=== PATIENT | male | born 1935 | race Caucasian/White ===

== ENCOUNTER → 2016-10-15 | Outpatient (CLI) | payer OTHER ==
[~2016-10-15] MED LIST: ACETAMINOPHEN325 M1 PO; ARTIFICIAL TEAR15 M1 BOTH EYES; ARTIFICIAL TEAR15 M6 BOTH EYES; ASPIRIN81 M1 PO; ASPIRIN81 M2 PO; ATORVASTATIN CA80 MG PO; BISAC-EVAC10 MG PR; BUSPAR15 MG PO; BUSPIRONE HCL15 MG PO; CARVEDILOL12.5 MG PO; CARVEDILOL6.25 MG PO; COLACE100 MG PO; COREG3.125 M1 PO; COUGH CONT100 MG/5 M PO; Colace PO; Coreg PO; DUONEB 2.5-0.5 M3 ML AEROSOL; FLEET ENEMA-AD118 ML PR; FLOMAX0.4 MG PO; FUROSEMIDE40 MG PO; Flexeril PO; Flomax PO; GLUCAGON HCL1 MG IM; HUMALOG MI100 UNIT/6 SC; HUMALOG MI100 UNIT/6 SQ; HUMALOG100 UNIT/1 SC; ISOSORBIDE MONO60 MG PO; KEFLEX500 MG PO; KLOR-CON 1010 ME1 PO; LANTUS 3 M100 UNITS1 SC; LEXAPRO10 MG PO; LIDODERM 5% P1 PATCH TD; LIPITOR80 MG PO; LISINOPRIL2.5 MG PO; LO-DOSE ASPIRIN81 M1 PO; LORAZEPAM0.5 MG PO; Lipitor PO; MECLIZINE HCL12.5 M1 PO; MILK OF MAGN PO; MORPHINE CON20 MG/M1 PO; NOVOLOG PE100 UNITS/ SC; NOVOLOG100 UNIT/1 SC; NOVOLOG100 UNIT/1 SQ; OMEPRAZOLE40 M1 PO; OXAYDO5 MG PO; PAROXETINE HCL40 MG PO; PLAVIX75 MG PO; PRILOSEC20 MG PO; PROAIR HFA8.5 GM IH; Paxil PO; Percocet 5/325,Endoc PO; RAPAFLO4 MG; REFRESH OPTIVE10 ML BOTH EYES; SPIRONOLACTONE25 MG PO; Senokot,Sennagen PO; TAMSULOSIN HCL0.4 MG PO; TRAMADOL HCL50 MG PO; Tears Naturale II,Ar BOTH EYES; VENTOLIN HFA18 GM IH; ZOFRAN4 MG PO; Zestril,Prinivil PO
== END ==
LOC: RAD 10:11
DX: C85.90 Non-Hodgkin lymphoma, unspecified, unspecified site (principal); K80.20 Calculus of gallbladder without cholecystitis without obstruction; Z91.041 Radiographic dye allergy status
CPT/HCPCS: 71250; 74176

== ENCOUNTER 2016-12-05 13:31 | Inpatient (IN) | payer OTHER ==
[~2016-12-05] VITALS: Ht 177.8 cm; Wt 87.0 kg
[2016-12-05 14:16] LABS: BASOPHIL COUNT 0.1 K/uL (0-0.1); EOSINOPHIL (%) 7.2 % (0-5); EOSINOPHIL COUNT 0.6 K/uL (0-0.3); HEMATOCRIT 44.4 % (38.0-50.0); IMMATURE GRANULOCYTE (%) 0.3 % (0.0-0.7); INSTRUMENT ABS NEUTROPHIL CT 5.2 K/uL; LYMPHOCYTE COUNT 1.9 K/uL (1.0-2.8); MCH 31.8 PG (29.0-34.0); MCHC 33.8 G/DL (30.0-36.0); MCV 94.3 FL (86-99); MEAN PLAT.VOLUME 10.2 uM^3 (9.0-12.4); MONOCYTE (%) 11.6 % (3-12); NEUTROPHIL (%) 58.6 % (45-76); NEUTROPHIL COUNT 5.2 K/uL (1.8-6.4); PLATELET COUNT 198 K/uL (156-360); RBC DIS.WIDTH-CV 12.7 % (11.8-14.6); RBC DIS.WIDTH-SD 43.5 % (39-53); RED BLOOD COUNT 4.71 M/uL (4.00-5.50); WHITE BLOOD COUNT 8.8 K/uL (4.1-10.2)
[2016-12-05 14:24] LABS: CHLORIDE 98 mEq/L (99-109); SODIUM 133 mEq/L (136-147)
[2016-12-05 14:28] LABS: ANION GAP 10 MEQ/L (2-14); GLUCOSE 345 mg/dL (70-99); POTASSIUM 5.4 mEq/L (3.7-5.4); TOTAL BILIRUBIN 0.8 mg/dL (0.0-1.0)
[2016-12-05 14:30] LABS: ALKALINE PHOSPHATASE 79 IU/L (3-129); GFR ESTIMATE (CALCULATED) 44 mL/min/
[2016-12-05 14:31] LABS: UREA NITROGEN (BUN) 18 mg/dL (9-23)
[2016-12-05 14:37] LABS: TROP-I INTERPRETATION NEGATIVE
[2016-12-05] MEDS ORDERED: ARTIFICIAL TEAR15 M1 BOTH EYES ×2 (16:39→16:50)
[2016-12-05] MEDS ORDERED: LASIX40 MG PO (16:43)
[2016-12-05] MEDS ORDERED: ALDACTONE25 MG PO (16:44)
[2016-12-05] MEDS ORDERED: MAALOX ADVANCE355 ML PO (16:46)
[2016-12-05] MEDS ORDERED: MILK OF MAGN PO (16:51)
[2016-12-05] MEDS ORDERED: BAYER CHEWABLE81 MG PO (17:05)
[2016-12-05 19:22] VITALS: BP 178/80
[2016-12-05 19:54] LABS: POINT-OF-CARE METER ID UU13113831
[2016-12-05 21:30] LABS: POINT-OF-CARE METER ID UU13113831
[2016-12-05 22:02] LABS: METH RESISTANT S AUREUS PCR NEGATIVE (NEGATIVE)
[2016-12-05 22:17] LABS: PROBE CHECK PASS; SPECIMEN PROCESSING CONTROL PASS
[2016-12-05 23:51] VITALS: BP 133/65
[2016-12-06] VITALS (7 sets, daily range): BP systolic 94–168; BP diastolic 65–86
[2016-12-06 00:59] LABS: TROP-I INTERPRETATION NEGATIVE
[2016-12-06 06:25] LABS: TROP-I INTERPRETATION NEGATIVE; TROPONIN-I 0.11 ng/mL (0.0-0.30)
[2016-12-06 08:32] LABS: POINT-OF-CARE METER ID UU13113700
[2016-12-06 10:53] LABS: TROP-I INTERPRETATION NEGATIVE; TROPONIN-I 0.08 ng/mL (0.0-0.30)
[2016-12-06 12:24] LABS: POINT-OF-CARE METER ID UU13113831
[2016-12-06 15:34] LABS: PROTHROMBIN TIME 10.3 (9.2-11.2)
[2016-12-06 17:28] LABS: POINT-OF-CARE METER ID UU13113700
[2016-12-07] VITALS (7 sets, daily range): BP systolic 95–162; BP diastolic 44–83
[2016-12-07 08:28] LABS: POINT-OF-CARE METER ID UU13113700
[2016-12-07 12:31] LABS: TYPE OF FLUID PLEURAL
[2016-12-07 12:41] LABS: POINT-OF-CARE METER ID UU13113700
[2016-12-07 14:05] LABS: BODY FLUID LDH 81 IU/L; BODY FLUID PROTEIN < 3.0 G/DL
[2016-12-07 14:07] LABS: BODY FLUID RBC'S 1000 /MM^3 (0-100); BODY FLUID WBC'S 557 /MM^3 (0-500)
[2016-12-07 14:16] LABS: BODY FLUID EOSINOPHILS 0 % (0-25); MONONUCLEAR WBC'S 93 %; POLYNUCLEAR WBC'S 7 % (0-25)
[2016-12-07] MEDS ORDERED: IMDUR30 MG PO (14:47)
[2016-12-11 03:16] LABS: BODY FLUID PH 7.9 (())
== END 2016-12-07 15:24 | DRG 292 ==
LOC: EME 13:31 → 5WEST 17:45 → EDOF 17:45 → 5WEST 19:13
PROVIDERS: Emergency Medicine; Hospitalist; Nurse Practitioner Family; Radiology Diagnostic Radiology
PROC: 0W993ZZ Drainage of Right Pleural Cavity, Percutaneous Approach (ICD-10-PCS; principal; 2016-12-07)
DX: I13.0 Hypertensive heart and chronic kidney disease with heart failure and stage 1 through stage 4 chronic kidney disease, or unspecified chronic kidney disease (principal); I50.32 Chronic diastolic (congestive) heart failure; J90 Pleural effusion, not elsewhere classified; C85.90 Non-Hodgkin lymphoma, unspecified, unspecified site; E11.22 Type 2 diabetes mellitus with diabetic chronic kidney disease; I25.10 Atherosclerotic heart disease of native coronary artery without angina pectoris; E11.65 Type 2 diabetes mellitus with hyperglycemia; N18.3 Chronic kidney disease, stage 3 (moderate); E78.5 Hyperlipidemia, unspecified; I48.91 Unspecified atrial fibrillation; G89.29 Other chronic pain; F32.9 Major depressive disorder, single episode, unspecified; K21.9 Gastro-esophageal reflux disease without esophagitis; I25.2 Old myocardial infarction; Z95.5 Presence of coronary angioplasty implant and graft; Z79.4 Long term (current) use of insulin; Z79.82 Long term (current) use of aspirin; Z91.041 Radiographic dye allergy status; Z87.891 Personal history of nicotine dependence
CPT/HCPCS: 36415; 71020; 71250; 80048; 80053; 80061; 80076; 82945; 82948; 83615 91; 83986 90; 84157; 84484; 85025; 85610; 87070; 87116; 87205; 87206; 87641; 88108; 88305; 89051; 93005; 97530 GO; 99281; 99285; G0378; G8978 GP CJ; G8979 GP CI; G8987 CK; G8988 GO CJ; J1644; J1815; J2270; J3010

== ENCOUNTER 2016-12-19 08:23 | Inpatient (IN) | payer OTHER ==
[~2016-12-19] VITALS: Ht 177.8 cm; Wt 96.2 kg
[~2016-12-19 08:23] MED LIST changes: +ALDACTONE25 MG PO; +BAYER CHEWABLE81 MG PO; +IMDUR30 MG PO; +LASIX40 MG PO; +MAALOX ADVANCE355 ML PO
[2016-12-19 09:27] LABS: EOSINOPHIL (%) 0 % (0-5); HEMATOCRIT 42.5 % (38.0-50.0); IMMATURE GRANULOCYTE (%) 1.9 % (0.0-0.7); IMMATURE GRANULOCYTE COUNT 0.4 K/uL; INSTRUMENT ABS NEUTROPHIL CT 17.6 K/uL; MCH 32.3 PG (29.0-34.0); MCHC 34.8 G/DL (30.0-36.0); MCV 92.8 FL (86-99); MEAN PLAT.VOLUME 11.9 uM^3 (9.0-12.4); MONOCYTE (%) 8.1 % (3-12); MONOCYTE COUNT 1.7 K/uL (0-0.8); NEUTROPHIL (%) 85.1 % (45-76); NEUTROPHIL COUNT 17.6 K/uL (1.8-6.4); PLATELET COUNT 146 K/uL (156-360); RBC DIS.WIDTH-CV 12.9 % (11.8-14.6); RBC DIS.WIDTH-SD 42.8 % (39-53); RED BLOOD COUNT 4.58 M/uL (4.00-5.50); WHITE BLOOD COUNT 20.7 K/uL (4.1-10.2)
[2016-12-19 09:36] LABS: ADD MIUA? YES; BILIRUBIN NEGATIVE; BLOOD MODERATE; COLOR YELLOW ((YELLOW)); GLUCOSE (STRIP) >=500; KETONES 5; LEUKOCYTES NEGATIVE; NITRITE NEGATIVE; PROTEIN (STRIP) 30; SPECIFIC GRAVITY 1.016 (1.000-1.030); UROBILINOGEN 0.2 MG/DL (0.2-1.0)
[2016-12-19 09:37] LABS: INTER. NORMALIZED RATIO 1.5; PTT 28.9 (25-32)
[2016-12-19 09:38] LABS: PROTHROMBIN TIME 15.5 (9.2-11.2)
[2016-12-19 09:42] LABS: CHLORIDE 85 mEq/L (99-109); SODIUM 122 mEq/L (136-147)
[2016-12-19 09:44] LABS: POTASSIUM 6.5 mEq/L (3.7-5.4)
[2016-12-19 09:45] LABS: ANION GAP 19 MEQ/L (2-14)
[2016-12-19 09:46] LABS: GLUCOSE 559 mg/dL (70-99); TOTAL BILIRUBIN 2.3 mg/dL (0.0-1.0)
[2016-12-19 09:47] LABS: ALKALINE PHOSPHATASE 85 IU/L (3-129)
[2016-12-19 09:48] LABS: GFR ESTIMATE (CALCULATED) 13 mL/min/
[2016-12-19 09:49] LABS: UREA NITROGEN (BUN) 91 mg/dL (9-23)
[2016-12-19 09:53] LABS: TROP-I INTERPRETATION POSITIVE
[2016-12-19 09:58] LABS: AMORPHOUS URATES CRYSTALS 2+; BACTERIA 1+ /HPF; CASTS PRESENT /LPF; CRYSTALS PRESENT; EPITHELIAL CELLS RARE /HPF; HYALINE CASTS 0-5 /LPF; MUCUS NONE SEEN /LPF; RED BLOOD CELLS 0-5 /HPF (0-5); UCUL ADDED? NO; WHITE BLOOD CELLS 0-5 /HPF (0-5)
[2016-12-19 10:11] LABS: TROPONIN-I 57.53 ng/mL (0.0-0.30)
[2016-12-19] MEDS ORDERED: ISOSORBIDE MONO30 MG PO (11:59)
[2016-12-19] MEDS ORDERED: KIONEX15 GM/60 M PO (12:01)
[2016-12-19] MEDS ORDERED: NITROSTAT0.4 MG SL (12:04)
[2016-12-19 16:32] VITALS: BP 110/72
[2016-12-19 17:20] LABS: ANION GAP 14 MEQ/L (2-14); SAMPLE HEMOLYSIS CHECK 0; SAMPLE ICTERIC CHECK 0; SAMPLE LIPEMIA CHECK 0
[2016-12-19 17:21] LABS: CHLORIDE 90 MEQ/L (99-109); POTASSIUM 4.7 MEQ/L (3.7-5.4); SODIUM 129 MEQ/L (136-147)
[2016-12-19 17:37] LABS: GFR ESTIMATE (CALCULATED) 17 mL/min/; UREA NITROGEN (BUN) 88 mg/dL (9-23)
[2016-12-19 17:38] LABS: GLUCOSE 420 mg/dL (70-99)
[2016-12-19 17:52] LABS: TROP-I INTERPRETATION POSITIVE
[2016-12-19 17:52] LABS: POINT-OF-CARE METER ID UU14174216; POINT-OF-CARE USER ID NUTSLF44
[2016-12-19 19:15] VITALS: BP 112/75
[2016-12-19 23:41] VITALS: BP 97/56
[2016-12-20 00:20] LABS: POINT-OF-CARE METER ID UU13113781
[2016-12-20 02:41] LABS: TROP-I INTERPRETATION POSITIVE; TROPONIN-I 42.71 ng/mL (0.0-0.30)
[2016-12-20 03:47] VITALS: BP 104/67
[2016-12-20 04:13] LABS: POINT-OF-CARE METER ID UU13113781
[2016-12-20 07:30] VITALS: BP 117/74
[2016-12-20 09:30] LABS: EOSINOPHIL (%) 1.5 % (0-5); EOSINOPHIL COUNT 0.3 K/uL (0-0.3); IMMATURE GRANULOCYTE (%) 1.2 % (0.0-0.7); IMMATURE GRANULOCYTE COUNT 0.2 K/uL; INSTRUMENT ABS NEUTROPHIL CT 13.3 K/uL; LYMPHOCYTE COUNT 1.6 K/uL (1.0-2.8); MCH 32.2 PG (29.0-34.0); MCHC 33.7 G/DL (30.0-36.0); MCV 95.6 FL (86-99); MEAN PLAT.VOLUME 11.6 uM^3 (9.0-12.4); MONOCYTE (%) 11.1 % (3-12); MONOCYTE COUNT 1.9 K/uL (0-0.8); NEUTROPHIL COUNT 13.3 K/uL (1.8-6.4); NRBC (%) 1.9 /100 WBC (0-0); PLATELET COUNT 125 K/uL (156-360); RBC DIS.WIDTH-CV 13.5 % (11.8-14.6); RBC DIS.WIDTH-SD 46.1 % (39-53); RED BLOOD COUNT 4.29 M/uL (4.00-5.50); WHITE BLOOD COUNT 17.3 K/uL (4.1-10.2)
[2016-12-20 09:53] LABS: ANION GAP 10 MEQ/L (2-14); CHLORIDE 97 MEQ/L (99-109); GFR ESTIMATE (CALCULATED) 21 mL/min/; GLUCOSE 219 mg/dL (70-99); SAMPLE HEMOLYSIS CHECK 1; SAMPLE ICTERIC CHECK 0; SAMPLE LIPEMIA CHECK 0; SODIUM 130 MEQ/L (136-147); UREA NITROGEN (BUN) 79 mg/dL (9-23)
[2016-12-20 10:01] VITALS: BP 112/68
[2016-12-20 10:03] LABS: TROP-I INTERPRETATION POSITIVE; TROPONIN-I 39.31 ng/mL (0.0-0.30)
[2016-12-20 10:05] LABS: POTASSIUM 4.4 MEQ/L (3.7-5.4)
[2016-12-20 12:25] VITALS: BP 121/77
[2016-12-20 12:38] LABS: POINT-OF-CARE METER ID UU14100415
[2016-12-20 12:38] LABS: POINT-OF-CARE METER ID UU14100415
[2016-12-20 16:57] VITALS: BP 123/66
[2016-12-20 17:54] LABS: POINT-OF-CARE METER ID UU13113781
[2016-12-20 19:53] VITALS: BP 121/80
[2016-12-21 00:01] VITALS: BP 108/58
[2016-12-21 04:17] VITALS: BP 109/65
[2016-12-21 04:40] LABS: EOSINOPHIL (%) 0.3 % (0-5); EOSINOPHIL COUNT 0.1 K/uL (0-0.3); HEMATOCRIT 42.2 % (38.0-50.0); IMMATURE GRANULOCYTE COUNT 0.4 K/uL; INSTRUMENT ABS NEUTROPHIL CT 15.9 K/uL; LYMPHOCYTE COUNT 1.5 K/uL (1.0-2.8); MCH 32.5 PG (29.0-34.0); MCHC 33.2 G/DL (30.0-36.0); MCV 97.9 FL (86-99); MEAN PLAT.VOLUME 12.3 uM^3 (9.0-12.4); MONOCYTE (%) 11.5 % (3-12); MONOCYTE COUNT 2.3 K/uL (0-0.8); NEUTROPHIL (%) 78.7 % (45-76); NEUTROPHIL COUNT 15.9 K/uL (1.8-6.4); NRBC (%) 2.4 /100 WBC (0-0); PLATELET COUNT 122 K/uL (156-360); RBC DIS.WIDTH-CV 13.8 % (11.8-14.6); RBC DIS.WIDTH-SD 47.8 % (39-53); RED BLOOD COUNT 4.31 M/uL (4.00-5.50); WHITE BLOOD COUNT 20.2 K/uL (4.1-10.2)
[2016-12-21 06:17] LABS: POINT-OF-CARE METER ID UU13113781
[2016-12-21 07:35] LABS: ALKALINE PHOSPHATASE 84 IU/L (3-129); ANION GAP 13 MEQ/L (2-14); CHLORIDE 96 MEQ/L (99-109); GFR ESTIMATE (CALCULATED) 23 mL/min/; GLUCOSE 255 mg/dL (70-99); POTASSIUM 4.4 MEQ/L (3.7-5.4); SAMPLE HEMOLYSIS CHECK 0; SAMPLE ICTERIC CHECK 0; SAMPLE LIPEMIA CHECK 0; SODIUM 131 MEQ/L (136-147); TOTAL BILIRUBIN 1.8 MG/DL (0.0-1.0); UREA NITROGEN (BUN) 77 mg/dL (9-23)
[2016-12-21 08:15] VITALS: BP 116/67
[2016-12-21 12:06] LABS: POINT-OF-CARE METER ID UU14174216
[2016-12-21 12:14] VITALS: BP 99/81
[2016-12-21 16:00] VITALS: BP 123/58
[2016-12-21 17:56] LABS: POINT-OF-CARE METER ID UU14174216; POINT-OF-CARE USER ID ENVKC36
[2016-12-21 19:49] VITALS: BP 104/57
[2016-12-22 00:28] VITALS: BP 105/63
[2016-12-22 00:47] LABS: POINT-OF-CARE METER ID UU14174216; POINT-OF-CARE USER ID ENVMNS
[2016-12-22 04:15] VITALS: BP 107/63
[2016-12-22 06:18] LABS: POINT-OF-CARE METER ID UU14174216; POINT-OF-CARE USER ID ENVMNS
[2016-12-22 08:15] VITALS: BP 100/66
[2016-12-22 08:23] LABS: BASOPHIL COUNT 0.1 K/uL (0-0.1); EOSINOPHIL (%) 0.6 % (0-5); EOSINOPHIL COUNT 0.1 K/uL (0-0.3); HEMATOCRIT 41.9 % (38.0-50.0); IMMATURE GRANULOCYTE (%) 4.1 % (0.0-0.7); IMMATURE GRANULOCYTE COUNT 0.8 K/uL; LYMPHOCYTE COUNT 2.4 K/uL (1.0-2.8); MCH 32.3 PG (29.0-34.0); MCHC 32.7 G/DL (30.0-36.0); MCV 98.8 FL (86-99); MEAN PLAT.VOLUME 12.1 uM^3 (9.0-12.4); MONOCYTE (%) 15.5 % (3-12); NRBC (%) 4.1 /100 WBC (0-0); PLATELET COUNT 96 K/uL (156-360); RBC DIS.WIDTH-CV 14.6 % (11.8-14.6); RBC DIS.WIDTH-SD 49.5 % (39-53); RED BLOOD COUNT 4.24 M/uL (4.00-5.50); WHITE BLOOD COUNT 19.4 K/uL (4.1-10.2)
[2016-12-22 08:56] LABS: ALKALINE PHOSPHATASE 112 IU/L (3-129); ANION GAP 12 MEQ/L (2-14); CHLORIDE 95 MEQ/L (99-109); GFR ESTIMATE (CALCULATED) 19 mL/min/; GLUCOSE 238 mg/dL (70-99); POTASSIUM 4.6 MEQ/L (3.7-5.4); SAMPLE HEMOLYSIS CHECK 0; SAMPLE ICTERIC CHECK 0; SAMPLE LIPEMIA CHECK 0; SODIUM 128 MEQ/L (136-147); TOTAL BILIRUBIN 1.8 MG/DL (0.0-1.0); UREA NITROGEN (BUN) 90 mg/dL (9-23)
[2016-12-22 12:30] VITALS: BP 106/63
[2016-12-22 16:31] VITALS: BP 110/63
[2016-12-22 19:15] VITALS: BP 105/68
[2016-12-22 23:28] LABS: POINT-OF-CARE METER ID UU14174216
[2016-12-23 00:54] VITALS: BP 111/63
[2016-12-23 04:07] VITALS: BP 109/71
[2016-12-23 05:04] LABS: POINT-OF-CARE METER ID UU13113781
[2016-12-23 06:27] LABS: ANION GAP 12 MEQ/L (2-14); CHLORIDE 93 MEQ/L (99-109); POTASSIUM 4.6 MEQ/L (3.7-5.4); SAMPLE HEMOLYSIS CHECK 0; SAMPLE ICTERIC CHECK 0; SAMPLE LIPEMIA CHECK 0; SODIUM 123 MEQ/L (136-147); TOTAL BILIRUBIN 1.7 MG/DL (0.0-1.0)
[2016-12-23 06:30] LABS: HEMATOCRIT 42.8 % (38.0-50.0); MCH 32.3 PG (29.0-34.0); MCHC 32.9 G/DL (30.0-36.0); MCV 98.2 FL (86-99); MEAN PLAT.VOLUME 12.3 uM^3 (9.0-12.4); NRBC (%) 2.6 /100 WBC (0-0); PLATELET COUNT 84 K/uL (156-360); RBC DIS.WIDTH-CV 14.8 % (11.8-14.6); RBC DIS.WIDTH-SD 50.3 % (39-53); RED BLOOD COUNT 4.36 M/uL (4.00-5.50); WHITE BLOOD COUNT 15.7 K/uL (4.1-10.2)
[2016-12-23 06:32] LABS: ALKALINE PHOSPHATASE 134 IU/L (3-129); GFR ESTIMATE (CALCULATED) 21 mL/min/; GLUCOSE 274 mg/dL (70-99); UREA NITROGEN (BUN) 96 mg/dL (9-23)
[2016-12-23 08:19] LABS: ABS NEUTROPHIL COUNT 11.5; EOSINOPHIL ABS CT 0.3; INSTRUMENT ABS NEUTROPHIL CT 10.2 K/uL
[2016-12-23 08:30] VITALS: BP 137/75
[2016-12-23 12:35] VITALS: BP 114/59
[2016-12-23] MEDS ORDERED: TYLENOL650 MG PR (13:00)
[2016-12-23] MEDS ORDERED: MORPHINE CON20 MG/M1 PO (13:02)
== END 2016-12-23 18:53 | DRG 280 ==
LOC: EME 08:23 → 4EAST 11:45 → EDOF 11:45 → 4EAST 15:57
PROVIDERS: Emergency Medicine; Internal Medicine; Internal Medicine Nephrology
DX: I21.09 ST elevation (STEMI) myocardial infarction involving other coronary artery of anterior wall (principal); N17.0 Acute kidney failure with tubular necrosis; K72.00 Acute and subacute hepatic failure without coma; E13.10 Other specified diabetes mellitus with ketoacidosis without coma; E87.2 Acidosis; I13.0 Hypertensive heart and chronic kidney disease with heart failure and stage 1 through stage 4 chronic kidney disease, or unspecified chronic kidney disease; I50.30 Unspecified diastolic (congestive) heart failure; I48.2 Chronic atrial fibrillation; C85.10 Unspecified B-cell lymphoma, unspecified site; E86.0 Dehydration; E11.22 Type 2 diabetes mellitus with diabetic chronic kidney disease; N18.3 Chronic kidney disease, stage 3 (moderate); I25.10 Atherosclerotic heart disease of native coronary artery without angina pectoris; Z95.5 Presence of coronary angioplasty implant and graft; Z86.74 Personal history of sudden cardiac arrest; R41.82 Altered mental status, unspecified; Z66 Do not resuscitate; Z51.5 Encounter for palliative care; D72.829 Elevated white blood cell count, unspecified; Z87.891 Personal history of nicotine dependence; E87.5 Hyperkalemia; E87.1 Hypo-osmolality and hyponatremia; Z79.4 Long term (current) use of insulin
CPT/HCPCS: 71010; 76705; 76770; 80048; 80048 91; 80053; 81003; 82948; 83605; 84484; 85025; 85025 91; 85610; 85730; 87040; 93306; 94799; 99202; 99281; 99284; C9113; J1815; J1940; J2543; J7030; J7050